=== PATIENT | male | born 2000 | race Hispanic/Latino ===

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

== ENCOUNTER 2022-07-15 22:19 | Emergency (ER) | payer OTHER, BC ==
[2022-07-15] MEDS ORDERED: Ibuprofen 200 MG TAB ONE (23:15)
== END 2022-07-15 23:55 | disposition home or self-care (01) ==
LOC: NAV ERS 22:19
DX: S93.402A Sprain of unspecified ligament of left ankle, initial encounter (principal); X58.XXXA Exposure to other specified factors, initial encounter